=== PATIENT | male | born 1990 | race African-American/Black ===

== ENCOUNTER 2018-06-28 12:59 | Emergency (ER) | payer MEDICAID ==
[~2018-06-28] VITALS: Ht 185.4 cm; Wt 123.0 kg
[2018-06-28 16:15] VITALS: BP 134/89
== END 2018-06-28 16:23 | disposition home or self-care (01) ==
LOC: ER 14:15
DX: T16.2XXA Foreign body in left ear, initial encounter (principal); H66.92 Otitis media, unspecified, left ear; F12.10 Cannabis abuse, uncomplicated; X58.XXXA Exposure to other specified factors, initial encounter; Y93.89 Activity, other specified; Y92.89 Other specified places as the place of occurrence of the external cause; Y99.8 Other external cause status
CPT/HCPCS: 99284

== ENCOUNTER 2018-07-08 07:49 | Emergency (ER) | payer MEDICAID ==
[~2018-07-08] VITALS: Ht 188 cm; Wt 100.0 kg
[2018-07-08 08:13] VITALS: BP 114/69
[2018-07-08] MEDS ORDERED: SODIUM CHLORIDE 0.9% 1,000 ML IV ONE (08:15)
[2018-07-08] MEDS ORDERED: ONDANSETRON HCL 4MG/2ML VIAL IV ONE (08:15)
[2018-07-08 08:24] LABS: BASOPHILS % 0.6 % (0.0-2.0); EOSINOPHILS % 1.8 % (0.0-5.0); HEMATOCRIT. 40.5 % (42.0-52.0); HEMOGLOBIN. 13.6 g/dL (14.0-18.0); LYMPHOCYTES % 40.2 % (20.0-50.0); MEAN CORPUSCULAR VOLUME 83.5 fL (80.0-94.0); MEAN PLATELET VOLUME 8.7 fl (7.4-10.4); MONOCYTES % 6.7 % (2.0-8.0); NEUTROPHILS % 50.7 % (40.0-76.0); PLATELET 189 x1000/uL (130-400); RED BLOOD CELL COUNT 4.85 mill/uL (4.7-6.1); RED CELL DISTRIBUTION WIDTH 14.6 % (11.6-14.6)
[2018-07-08 08:29] LABS: CHLORIDE 108 mEq/L (98-107)
== END 2018-07-08 11:26 | disposition home or self-care (01) ==
LOC: ER 07:49
DX: D64.9 Anemia, unspecified (principal); E87.6 Hypokalemia; R55 Syncope and collapse; R07.9 Chest pain, unspecified; R11.2 Nausea with vomiting, unspecified; F12.10 Cannabis abuse, uncomplicated; F17.210 Nicotine dependence, cigarettes, uncomplicated
CPT/HCPCS: 36415; 71045; 80053; 84484; 85025; 93005; 96361; 96374; 99285; J2405; J7030; Z7610

== ENCOUNTER 2022-06-21 12:21 | Emergency (ER) | payer MEDICAID ==
[~2022-06-21] VITALS: Ht 185.4 cm; Wt 114.0 kg
[2022-06-21 12:38] VITALS: BP 156/99
[2022-06-21] MEDS ORDERED: LORAZEPAM 0.5MG TABLET PO ONE (13:15)
[2022-06-21] MEDS ORDERED: KETOROLAC 60MG/2ML VIAL IM ONE (13:15)
[2022-06-21] MEDS ORDERED: METH-653 MT (14:24)
[2022-06-21] MEDS ORDERED: MELO-105 MT (14:24)
[2022-06-21] MEDS ORDERED: LORAZEPAM 0.5MG TABLET PO NR (15:45)
== END 2022-06-22 06:22 | disposition home or self-care (01) ==
LOC: ER 12:21
DX: M25.512 Pain in left shoulder (principal); M79.642 Pain in left hand; M54.50 Low back pain, unspecified; G89.11 Acute pain due to trauma; V03.90XA Pedestrian on foot injured in collision with car, pick-up truck or van, unspecified whether traffic or nontraffic accident, initial encounter; Y93.01 Activity, walking, marching and hiking; Y92.488 Other paved roadways as the place of occurrence of the external cause
CPT/HCPCS: 73030; 73130; 99284; J1885

== ENCOUNTER 2022-08-07 16:57 | Emergency (ER) | payer MEDICAID ==
[~2022-08-07] VITALS: Ht 185.4 cm; Wt 114.0 kg
[~2022-08-07 16:57] MED LIST: MELO-105 MT; METH-653 MT
[2022-08-07 18:08] VITALS: BP 150/88
== END 2022-08-07 23:15 | disposition left against medical advice (07) ==
LOC: ER 16:57
DX: Z53.21 Procedure and treatment not carried out due to patient leaving prior to being seen by health care provider (principal)

== ENCOUNTER 2025-08-23 17:59 | Emergency (ER) | payer MEDICAID ==
[~2025-08-23] VITALS: Ht 185.4 cm; Wt 105.0 kg
[2025-08-23 18:41] VITALS: O2SAT 99
[2025-08-23 18:44] VITALS: BP 128/91; PULSE 77; RESP 18; TEMP 36.9; O2SAT 99
== END 2025-08-23 20:58 | disposition home or self-care (01) ==
LOC: ER 17:59
DX: B07.0 Plantar wart (principal); F12.90 Cannabis use, unspecified, uncomplicated; Z79.1 Long term (current) use of non-steroidal anti-inflammatories (NSAID)
CPT/HCPCS: 99282